=== PATIENT | male | born 1985 | race Caucasian/White ===

== ENCOUNTER 2019-04-23 01:25 | Inpatient (IN) | payer OTHER, SELFPAY ==
[~2019-04-23] VITALS: Ht 177.8 cm; Wt 73.3 kg
[2019-04-23] VITALS (47 sets, daily range): BP systolic 79–173; BP diastolic 45–103; O2SAT 100
[2019-04-23] MEDS ORDERED: MORPHINE 4 MG/ML 1ML VIAL/SYRINGE (J2270) IV PRN (03:30)
[2019-04-23 03:41] LABS: ABG BASE EXCESS -4.7 (-2.0-2.0); ABG O2 SATURATION 98.3 % (95.0-99.0); ABG PARTIAL PRESSURE CO2 36.6 mmHg (35.0-45.0); ABG PARTIAL PRESSURE O2 119.9 mmHg (75.0-100.0); ABG STANDARD HCO3 20.7 MEQ/L (22.0-26.0); ABG TOTAL CO2 21.1 MEQ/L (22.0-29.0); ABG pH (ARTERIAL) 7.355 UNITS (7.350-7.450)
[2019-04-23 03:50] LABS: BASO # 0.1 10^3/uL (0.0-0.2); BASO % 0.3 % (0.0-1.0); EOS % 0.1 % (0.0-3.0); HEMATOCRIT 53.6 % (42.0-52.0); HEMOGLOBIN 18.5 g/dl (13.5-17.5); LYMPH # 1.4 10^3/uL (1.5-4.5); LYMPH % 7.9 % (24.0-44.0); MEAN CORPUSCULAR HEMOGLOBIN 32.5 pg (27.0-33.0); MEAN CORPUSCULAR HGB CONC 34.5 g/dl (32.0-36.5); MONO # 1.7 10^3/uL (0.0-0.8); MONO % 9.5 % (0.0-5.0); NEUTROPHILS # 14.5 10^3/uL (1.8-7.7); NEUTROPHILS % 81.8 % (36.0-66.0); PLATELET COUNT, AUTOMATED 269 10^3/uL (150-450); WHITE BLOOD COUNT 17.8 10^3/uL (4.0-10.0)
[2019-04-23 03:58] LABS: OSMOLALITY SERUM 303 MOSM/KG (275-295)
[2019-04-23] MEDS ORDERED: GABA-843 PO (04:17)
[2019-04-23] MEDS ORDERED: BACL10TA2 PO (04:17)
[2019-04-23] MEDS ORDERED: PATIENT COMMENT (04:17)
[2019-04-23] MEDS ORDERED: ALL10TAB28 PO (04:17)
[2019-04-23] MEDS ORDERED: PROAAER10 INH (04:17)
[2019-04-23 04:20] LABS: ALBUMIN 3.5 GM/DL (3.2-5.2); ALT/SGPT 28 U/L (12-78); BILIRUBIN,TOTAL 0.6 MG/DL (0.2-1.0); BLOOD UREA NITROGEN 7 MG/DL (7-18); CALCIUM LEVEL 8.6 MG/DL (8.5-10.1); CARBON DIOXIDE LEVEL 22 MEQ/L (21-32); CHLORIDE LEVEL 115 MEQ/L (98-107); CHOLESTEROL LEVEL 150 MG/DL (< 200); CPK CREATINE PHOSPHOKINASE 131 U/L (39-308); CREATININE FOR GFR 1.11 MG/DL (0.70-1.30); GLOMERULAR FILTRATION RATE > 60.0 (>60); GLUCOSE, FASTING 114 MG/DL (70-100); LDH LACTATE DEHYDROGENASE 269 U/L (87-241); MAGNESIUM LEVEL 2.6 MG/DL (1.8-2.4); PHOSPHORUS LEVEL 3.4 MG/DL (2.5-4.9); POTASSIUM SERUM 5.5 MEQ/L (3.5-5.1); SODIUM LEVEL 143 MEQ/L (136-145); TOTAL PROTEIN 7.3 GM/DL (6.4-8.2); TRIGLYCERIDES LEVEL 306 MG/DL (<150)
[2019-04-23] MEDS ORDERED: NS 1,000 ML IV ONE ×3 (04:30→06:30)
[2019-04-23] MEDS ORDERED: MIDAZOLAM INJ 2 MG/2 ML VIAL (J2250) As Ordered ONE ×2 (04:31→04:36)
[2019-04-23] MEDS ORDERED: MIDAZOLAM INJ 2 MG/2 ML VIAL (J2250) IV STA ×3 (04:34→18:39)
[2019-04-23 05:16] LABS: ETHYL ALCOHOL (ETHANOL) < 0.003 % (0.000-0.010)
--- NOTE | 2019-04-23 05:55 | HPE ---
DATE OF ADMISSION: 04/23/2019 CRITICAL CARE TIME: 1 hour and 15 minutes. This excludes all procedures. HISTORY OF PRESENT ILLNESS: Mr. Patterson is a 34-year-old male who does not routinely see physicians who had been transferred from [facility] ([facility]) after presenting there with severe agitation and altered mental status. Apparently the only history I am able to obtain is this through his reported fiance Zackary Thomas. She states over the past couple of days they have been arguing and therefore she did not have much interaction with him. They do live in the same household. She states that this evening he approached her and kept repeating himself and not making sense with conversation. He was ", "twitchy and clammy." She felt that something was not right and therefore called the ambulance and reports at times he was not responding to her questions. He had a few episodes of vomiting. She states he vomited mostly bile. She states he was very agitated walking around and rocking back and forth and would not sit down even when the ambulance came. On arrival to the emergency room he was agitated. They gave him benzodiazepine therapy to obtain a noncontrast head CT which was reportedly completely normal and of good quality. The significant other reports no recent trauma. No recent sick contacts. She states he takes Tylenol on a regular basis for headaches. The only medical history is he had teeth pulled two weeks ago and had been taking antibiotics since that time. She believes he has been taking clindamycin 150 mg every 8 hours. He denies any diarrhea. The patient has gabapentin and baclofen for chronic back pain available to him. He is not known to use any intravenous (IV) drugs but does smoke pot on a daily basis but she states he has not smoked pot today. He has no history of other illicit drug use, no cocaine history. He does have a court date today. I am not sure the details of that but she asked for a letter. On my arrival to the room the patient does respond to pain. He is sedated on mechanical ventilation on a Versed drip. No obvious signs of trauma. I did attempt doing a lumbar puncture at bedside due to his elevated white blood cell count and history of altered mental status and agitation. I did not obtain any cerebrospinal fluid due to the fact that he was not conscious during the procedure. I did not want to continue with excessive attempts towards lumbar puncture. I think the possibility of meningitis is less likely as he has been on clindamycin. His fiance also tells me that he has avoided physicians. She believes he has had his childhood immunizations. PAST MEDICAL HISTORY: The only history obtainable as that: 1. He has an active cigarette smoker, marijuana use. 2. Chronic back pain, history of back injury. . 3. Recent tooth extraction. SOCIAL HISTORY: He lives with luana, no sick contacts. No other history is obtainable. FAMILY HISTORY: Not obtainable due to clinical state. REVIEW OF SYSTEMS: Not obtainable due to clinical state. PHYSICAL EXAMINATION: VITAL SIGNS: Temperature is 97.0, blood pressure is 95/60 with a manual arterial pressure of 72 ranging to 117/62, pulse ranging 47-59 and a sinus bradycardia, respiratory rate is 20, oxygen saturation is 100% on 0.40 FIO2. GENERAL: The patient is sedated on mechanical ventilation but does respond to pain, moves all extremities at times. HEENT: Sclerae clear. Pupils are small but reactive to light and equal. There is some conjunctival injection and irritation. Nasal mucosa is pink and moist. Oropharynx without erythema or exudate. There is a small laceration of his left upper lip which may have been present during intubation. Tongue is midline. NECK: Neck is supple. No tracheal deviation or mass, no thyromegaly. LYMPHS: No cervical, supraclavicular, axillary adenopathy. CARDIAC: Regular S1-S2 and bradycardia without murmur, rub or gallop. No elevated jugular venous pulse (JVP). No systemic edema. PULMONARY: Clear to auscultation, slightly decreased breath sounds on the right than the left. No rales, rhonchi or wheezes. No dullness to percussion. Fairly normal chest expansion. ABDOMEN: Soft, nontender, nondistended. No hepatosplenomegaly. No mass or hernia. EXTREMITIES: No cyanosis, clubbing or edema. SKIN: No rashes, jaundice or bruising. There are no track monroe. MUSCULOSKELETAL: Well-developed muscle tone without evidence of joint effusion. LABORATORY EVALUATION: White blood cell count of 17, hematocrit of 18.5. Sodium is 143, potassium is 5.5, chloride 115, bicarb is 22, BUN of 7, creatinine 1.11, glucose is 114, anion gap is 6, serum osm 303, calculated osmolar gap is 8, lactate is 1.6. IMAGING: Chest x-ray shows the endotracheal tube high approximately 7.5 cm above the isabel and this was advanced after this finding. There is rotation of the film. Otherwise the lung jernigan appear clear. No evidence of pneumothorax, mass or effusion. IMPRESSION: 1. Altered mental status of undetermined etiology, possibly drug induced. The patient has access to baclofen, gabapentin and recently had social stressors. Also the patient has an elevated white count significantly; so therefore meningitis remains in the differential however, the patient was already on clindamycin which would make this less likely but not impossible. Therefore I attempted a lumbar puncture at bedside which was unsuccessful and due to the fact that he is not conscious I did not continue to try as he would not be able to tell me if there is a significant discomfort.. I have covered with ceftriaxone and vancomycin. At this point in time his head CT was unremarkable. There does not have a prior history of seizure. He has a normal osmolar gap. My ultimate suspicion is this is toxic metabolic but infection should be taken seriously in the light of a leukocytosis. 2. Leukocytosis. As mentioned above being covered for meningitis. Meningitis coverage would cover any other potential source of infection. There is no other potential source of infection at this point in time. Blood cultures are being obtained. He does have a recent history of tooth extraction. I do not auscultate any murmurs. I see no Janeway lesions. I do not believe he has endocarditis although this remains on the differential. 3. Dehydration with hemoconcentration with history of vomiting. Intravenous fluids are initiated. He will likely need at least 3 liters. 4. Hyperkalemia likely induced due to dehydration. Will continue to monitor with morning labs. 5. Gastrointestinal prophylaxis with Protonix. 6. Deep venous thrombosis (DVT) prophylaxis with Lovenox. PLAN: Will continue to monitor and perform sedation vacation in the morning. If the patient does well and wakes up and follows commands a trial of extubation will be performed; if not, he may require further imaging with MRI. The patient remains critically ill due to the severity of his altered mental status requiring mechanical ventilation for protection of airway. Critical care time was 1 hour 15 minutes.
[2019-04-23] MEDS ORDERED: ACET-897 PO (05:58)
[2019-04-23] MEDS ORDERED: IBUP1TAB6 PO (05:58)
[2019-04-23] MEDS ORDERED: MIDAZOLAM HCL 100 MG in D5W 80 ML IV SCH ×2 (06:00→16:24)
--- NOTE | 2019-04-23 06:21 | RO ---
DATE OF SERVICE: 04/23/2019 INTENDED PROCEDURE: Lumbar puncture. INDICATION: Possible meningitis. POSTPROCEDURE DIAGNOSIS: Possible meningitis. DOCTOR: Dr. Griffith ANESTHESIA: The patient was sedated on mechanical ventilation. PROCEDURE: There was no one to provide informed consent, verbal consent was provided by his fiance who he lives with, however, is not the legal quality control representative it was deemed necessary and urgent that this be performed due to his clinical presentation. DESCRIPTION OF PROCEDURE: The area is prepped and draped in the usual sterile fashion with Betadine and sterile drape. Using landmarks a 22 gauge needle was attempted to be inserted into the L4-L5 interspace, this stylet was removed on multiple attempts and there was no return of any fluid. I therefore attempted the L3-L4 interspace, again no evidence of fluid returned. The procedure was stopped, there is no evidence of hemostasis. A Band-Aid was placed over the site. There is no evidence of hematoma.
[2019-04-23] MEDS ORDERED: VANCOMYCIN HCL 750 MG, VIAL MATE ADAPTER 1 EACH in D5W 250 ML IV ONE (07:00)
--- NOTE | 2019-04-23 07:03 | REP ---
Clinical: Dyspnea . Comparison: None . Findings: Endotracheal tube approximately 5 cm above the isabel. Evaluation is somewhat limited by positioning and rotation. The mediastinum and cardiac silhouette are within normal limits for portable technique. The lung jernigan are clear without acute consolidation, effusion, or pneumothorax. Skeletal structures are intact. Impression: No acute cardiopulmonary process appreciated. Electronically Signed by James De Los Santos MD 04/23/2019 06:54 A
[2019-04-23] MEDS: CHLORHEXIDINE GLUCONATE 0.12 % 15ML UDC (PERIDEX ORAL RINSE) MT SCH ×2 (07:38→20:32)
[2019-04-23] MEDS: ENOXAPARIN 40 MG/0.4 ML SYRINGE (J1650) SC SCH (07:38)
[2019-04-23] MEDS: PANTOPRAZOLE 40MG INJ (PROTONIX) (C9113) IV SCH (07:38)
[2019-04-23] MEDS: IPRATROPIUM 0.5MG/ALBUTEROL 2.5MG INH SOL UD 3ML (DUONEB)(J7620) NEB SCH ×4 (07:51→19:28)
--- NOTE | 2019-04-23 08:05 | PHACANCOPD ---
PHARMACY VANCOMYCIN DOSING Pt Demographics Demographics Patient Age:34 , Weight:74.700 , Gender: male Adjusted Body Weight Date: 04/23/19, Adjusted Body Weight: Kg Events Past 24 Hours Events Past 24 Hours: YES: Elevation in WBC, Pending Diagnostics Vancomycin Vancomycin indication: POSSIBLE MENINGITIS Vancomycin Target Ranges: 15-20 mcg/ml Vancomycin Load Y/N: Yes Load Dose Date Time Vancomycin Load Dose: 1750mg Date: 04/23/19 Time: 0700 Vancomycin Dose Date: 04/23/19. Current Vancomycin Dose: [1g IV Q8H] Intermittent Dosing?: No Labs Labs Item Value Date Time White Blood Count 17.8 10^3/uL H 04/23/19 0343 Creatinine 1.11 MG/DL 04/23/19 0343 Blood Urea Nitrogen 7 MG/DL 04/23/19 0343 Lactic Acid Level 1.6 MMOL/L 04/23/19 0343 Micro Microbiology 04/23/19 Blood Culture, Received Pending Creatinine Clearance Date:04/23/19. Creatinine Clearance: . Assessment and Plan Maintaining Current Dose?: Yes Reason for dose change: No Dose Change Pharmacist Note Pharmacist Note Date: 04/23/19. Pharmacist note: Day #1 empiric vancomycin therapy initiated with a 1750mg loading dose, followed by a maintenance regimen of 1g IV Q8H for the treatment of possible meningitis - aiming for a goal trough of 15-20mcg/ml. The patient was transferred from [facility] after presenting with AMS, and is currently intubated. WBC is elevated, pt is afebrile, procalcitonin is pending, and CXR revealed "No acute cardiopulmonary process appreciated." No PMH of MRSA or vanco use here at [facility]. A vancomycin trough level has been scheduled to be drawn tomorrow, 04/24/19, at 0800 - prior to the 4th dose. We will continue to monitor and make dose adjustments if needed. PIERRE REGAN [facility] Apr 23, 2019 08:05
[2019-04-23] MEDS ORDERED: MIDAZOLAM INJ 5 MG/ML VIAL (J2250) As Ordered ONE (08:18)
[2019-04-23 08:25] LABS: HEMATOCRIT 51.2 % (42.0-52.0); HEMOGLOBIN 17.8 g/dl (13.5-17.5); MEAN CORPUSCULAR HEMOGLOBIN 31.7 pg (27.0-33.0); MEAN CORPUSCULAR HGB CONC 34.8 g/dl (32.0-36.5); MEAN CORPUSCULAR VOLUME 91.3 fl (80.0-96.0); PLATELET COUNT, AUTOMATED 231 10^3/uL (150-450); RED BLOOD COUNT 5.61 10^6/uL (4.30-6.10); WHITE BLOOD COUNT 13.9 10^3/uL (4.0-10.0)
[2019-04-23] MEDS ORDERED: MIDAZOLAM INJ 5 MG/ML VIAL (J2250) IV STA (08:30)
[2019-04-23] MEDS: MIDAZOLAM HCL 100 MG in D5W 80 ML IV SCH ×2 (08:45→18:15)
[2019-04-23 08:57] LABS: BLOOD UREA NITROGEN 5 MG/DL (7-18); CALCIUM LEVEL 8.2 MG/DL (8.5-10.1); CARBON DIOXIDE LEVEL 22 MEQ/L (21-32); CHLORIDE LEVEL 118 MEQ/L (98-107); CREATININE FOR GFR 1.04 MG/DL (0.70-1.30); GLOMERULAR FILTRATION RATE > 60.0 (>60); GLUCOSE, FASTING 97 MG/DL (70-100); POTASSIUM SERUM 4.6 MEQ/L (3.5-5.1); SODIUM LEVEL 146 MEQ/L (136-145)
[2019-04-23] MEDS: VANCOMYCIN HCL 1,000 MG, VIAL MATE ADAPTER 1 EACH in D5W 250 ML IV SCH ×2 (09:05→18:07)
[2019-04-23] MEDS ORDERED: cefTRIAXone SOD 2 GM VIAL (J0696) IM SCH (10:00)
[2019-04-23] MEDS: cefTRIAXone SOD 2 GM in D5W MINI-BAG PLUS 50 ML IV SCH (10:30)
[2019-04-23] MEDS: MIDAZOLAM INJ 2 MG/2 ML VIAL (J2250) IV PRN ×9 (12:35→20:57)
[2019-04-23] MEDS ORDERED: PROPOFOL 1,000 MG in APPROPRIATE DILUENT 1 EA IV SCH (13:00)
[2019-04-23] MEDS ORDERED: NS 500 ML IV ONE ×2 (14:15→16:00)
[2019-04-23] MEDS ORDERED: MIDAZOLAM INJ 2 MG/2 ML VIAL (J2250) IV ONE (16:00)
[2019-04-23] MEDS ORDERED: MIDAZOLAM INJ 5 MG/ML VIAL (J2250) IV ONE (16:00)
--- NOTE | 2019-04-23 16:05 | REP ---
MRI brain without contrast: History: Altered mental status. Comparison study: No comparison study. Technique: Axial and sagittal imaging planes are utilized for T1 and T2-weighted scans. Sequences include spin-echo, fast spin echo, FLAIR, and diffusion weighted sequences. MRI findings: No bony calvarial lesion is seen. Craniocervical junction and upper cervical cord are normal in appearance. There is no MR evidence of significant paranasal sinus disease. No intraorbital abnormality is seen. The lateral, third, and fourth ventricles are normal in size and position. Saleem-white differentiation pattern is intact above and below the tentorium. There is no evidence of intracranial hemorrhage. No mass, infarction, extra-axial fluid collection or midline shift is seen. No abnormal white matter lesion is seen. Impression: Negative noncontrast brain MRI study. Electronically Signed by Stephon Harry MD 04/23/2019 04:03 P
[2019-04-23] MEDS ORDERED: PROPOFOL 1,000 MG/100 ML VIAL As Ordered ONE (20:31)
[2019-04-23] MEDS: PROPOFOL 1,000 MG in APPROPRIATE DILUENT 1 EA IV SCH (20:58)
[2019-04-24] VITALS (26 sets, daily range): BP systolic 95–125; BP diastolic 53–80; O2SAT 98–99
[2019-04-24] MEDS: VANCOMYCIN HCL 1,000 MG, VIAL MATE ADAPTER 1 EACH in D5W 250 ML IV SCH ×2 (00:45→09:54)
[2019-04-24] MEDS: PROPOFOL 1,000 MG in APPROPRIATE DILUENT 1 EA IV SCH ×7 (00:56→21:08)
[2019-04-24] MEDS: MIDAZOLAM INJ 2 MG/2 ML VIAL (J2250) IV PRN ×5 (06:22→16:29)
[2019-04-24 06:31] LABS: ABG BASE EXCESS -1.3 (-2.0-2.0); ABG O2 SATURATION 96.3 % (95.0-99.0); ABG PARTIAL PRESSURE CO2 29.7 mmHg (35.0-45.0); ABG PARTIAL PRESSURE O2 75.1 mmHg (75.0-100.0); ABG STANDARD HCO3 23.4 MEQ/L (22.0-26.0); ABG TOTAL CO2 21.9 MEQ/L (22.0-29.0); ABG pH (ARTERIAL) 7.468 UNITS (7.350-7.450)
[2019-04-24 08:12] LABS: BASO % 0.3 % (0.0-1.0); EOS % 0.3 % (0.0-3.0); HEMATOCRIT 42.7 % (42.0-52.0); HEMOGLOBIN 15.2 g/dl (13.5-17.5); LYMPH % 8.8 % (24.0-44.0); MEAN CORPUSCULAR HEMOGLOBIN 31.9 pg (27.0-33.0); MEAN CORPUSCULAR HGB CONC 35.6 g/dl (32.0-36.5); MEAN CORPUSCULAR VOLUME 89.7 fl (80.0-96.0); MONO % 8.8 % (0.0-5.0); NEUTROPHILS # 9.5 10^3/uL (1.8-7.7); NEUTROPHILS % 81.5 % (36.0-66.0); PLATELET COUNT, AUTOMATED 216 10^3/uL (150-450); RED BLOOD COUNT 4.76 10^6/uL (4.30-6.10); WHITE BLOOD COUNT 11.7 10^3/uL (4.0-10.0)
[2019-04-24] MEDS: IPRATROPIUM 0.5MG/ALBUTEROL 2.5MG INH SOL UD 3ML (DUONEB)(J7620) NEB SCH ×4 (08:13→19:35)
--- NOTE | 2019-04-24 08:36 | REP ---
Clinical: Respiratory failure. Comparison: 04/23/2019. Findings: Endotracheal tube approximately 4 cm above the isabel. Nasogastric tube courses below left hemidiaphragm. Mediastinum and cardiac silhouette are within normal limits. Lung jernigan are relatively stable/clear and without focal consolidation, obvious effusion, or pneumothorax. Skeletal structures are intact. Impression: Lines and tubes in satisfactory position. No obvious focal consolidation or effusion. Electronically Signed by James De Los Santos MD 04/24/2019 07:21 A
[2019-04-24 09:01] LABS: ALBUMIN 3.2 GM/DL (3.2-5.2); BLOOD UREA NITROGEN 5 MG/DL (7-18); CALCIUM LEVEL 8.6 MG/DL (8.5-10.1); CARBON DIOXIDE LEVEL 24 MEQ/L (21-32); CHLORIDE LEVEL 114 MEQ/L (98-107); CREATININE FOR GFR 1.05 MG/DL (0.70-1.30); GLOMERULAR FILTRATION RATE > 60.0 (>60); GLUCOSE, FASTING 88 MG/DL (70-100); PHOSPHORUS LEVEL 2.7 MG/DL (2.5-4.9); POTASSIUM SERUM 3.2 MEQ/L (3.5-5.1); SODIUM LEVEL 146 MEQ/L (136-145); VANCOMYCIN LEVEL TROUGH 16.1 UG/ML (10.0-20.0)
[2019-04-24 09:02] LABS: ALBUMIN 3.1 GM/DL (3.2-5.2); ALT/SGPT 18 U/L (12-78); BILIRUBIN,TOTAL 0.6 MG/DL (0.2-1.0); BLOOD UREA NITROGEN 4 MG/DL (7-18); CALCIUM LEVEL 8.7 MG/DL (8.5-10.1); CARBON DIOXIDE LEVEL 24 MEQ/L (21-32); CHLORIDE LEVEL 115 MEQ/L (98-107); CREATININE FOR GFR 1.07 MG/DL (0.70-1.30); GLOMERULAR FILTRATION RATE > 60.0 (>60); GLUCOSE, FASTING 89 MG/DL (70-100); POTASSIUM SERUM 3.1 MEQ/L (3.5-5.1); SODIUM LEVEL 146 MEQ/L (136-145); TOTAL PROTEIN 6.6 GM/DL (6.4-8.2)
[2019-04-24] MEDS ORDERED: POTASSIUM CHLORIDE INJ 20 MEQ in D5W/0.45% SODIUM CHLORIDE 1,000 ML IV SCH (09:15)
--- NOTE | 2019-04-24 09:30 | CCN ---
DATE OF SERVICE: 04/24/2019 Mr. Patterson is seen in the intensive care unit (ICU). He is currently sedated. Nursing notes that the patient has been doing well overnight without any significant issues while on the ventilator. He was initiated on propofol last evening after becoming agitated in spite of being on Versed. He has been afebrile. No other new issues noted by nursing. He is making urine, approximately 60 mL/h. Vital signs: Temperature 99.1, pulse 86, blood pressure 116/70, respiratory rate 23, oxygen (O2) saturation 98%. The patient is on a ventilator set at volume control with a tidal volume of 440, rate of 20, positive end-expiratory pressure (PEEP) of 5, FIO2 of 21. General: The patient is sedate. A spontaneous breathing trial is attempted, and sedation was turned off. The patient became agitated, was moving all extremities but not following commands. HEENT: Head is normocephalic, atraumatic. The patient has endotracheal tube in place. Moist mucous membranes. Pupils are dilated. Neck: Neck is supple. No cervical lymphadenopathy. Trachea is midline. No jugular venous distention (JVD). Chest: Clear to auscultation bilaterally. No wheezes, rales, rhonchi, or crackles. Heart: Regular rate and rhythm. S1, S2. No murmurs. Abdomen: Positive bowel sounds, soft, nontender. No rebound or guarding. No obvious hepatosplenomegaly. Extremities: No clubbing, cyanosis, or edema. Skin: Skin is warm and dry. Neurologic: The patient moves all extremities. He does not follow commands. LABORATORIES: WBC 11.7, hemoglobin 15.2, hematocrit 42.7, platelets 216. Blood gas: pH 7.468, PCO2 29.7, pO2 75.1. Chemistry is pending. Vancomycin level pending. Chest x-ray is without obvious infiltrates or nodules. Endotracheal tube is measured at about 5.5 cm above the isabel. A blood culture shows no growth after 24 hours times one. Additional blood culture pending. Procalcitonin 0.03. ASSESSMENT AND PLAN: 1. Toxic metabolic encephalopathy. The patient was given a spontaneous breathing trial, which he failed as he did not follow commands. He was moving all extremities. Pupils have remained dilated, likely signifying continued drug effect. The plan will be to keep the patient intubated again today and continue to monitor closely and will attempt another spontaneous breathing trial tomorrow. 2. Leukocytosis. The patient does have elevated white blood cell (WBC) of 11.7. However, this is trending down. He is being covered with ceftriaxone and vancomycin until meningitis can be completely ruled out. His procalcitonin level was 0.03. Because of the procalcitonin being so low, this does not appear to be an infection; and, therefore, it is felt that vancomycin and ceftriaxone can be discontinued. WBC continues to trend down, as well. This does not appear to be meningitis. 3. Respiratory failure secondary to toxic metabolic encephalopathy. 4. Nutrition. Will order feeds with Jevity. 5. Situational depression, according to family. The patient will require a psychiatric evaluation prior to discharge. 6. Gastrointestinal (GI) prophylaxis. The patient is on Protonix. 7. Deep venous thrombosis (DVT) prophylaxis. The patient is on Lovenox. CRITICAL CARE TIME: 50 minutes, excluding all procedures.
[2019-04-24] MEDS: MIDAZOLAM HCL 100 MG in D5W 80 ML IV SCH ×2 (09:50→11:57)
[2019-04-24] MEDS: ENOXAPARIN 40 MG/0.4 ML SYRINGE (J1650) SC SCH (09:53)
[2019-04-24] MEDS: PANTOPRAZOLE 40MG INJ (PROTONIX) (C9113) IV SCH (09:53)
[2019-04-24] MEDS: KCL 20MEQ IN D5/0.45NS 1000ML 1,000 ML IV SCH ×2 (09:55→20:13)
[2019-04-24] MEDS: cefTRIAXone SOD 2 GM in D5W MINI-BAG PLUS 50 ML IV SCH (09:55)
[2019-04-24] MEDS: CHLORHEXIDINE GLUCONATE 0.12 % 15ML UDC (PERIDEX ORAL RINSE) MT SCH ×2 (10:00→20:13)
[2019-04-24] MEDS ORDERED: POTASSIUM CHLORIDE 10% LIQ 20 MEQ/15 ML UDC FT ONE (10:00)
[2019-04-24] MEDS ORDERED: cefTRIAXone SOD 2 GM VIAL (J0696) IV SCH (10:00)
[2019-04-24 12:26] LABS: THYROID STIMULATING HORMONE 0.726 uIU/ML (0.358-3.740)
[2019-04-25] VITALS (18 sets, daily range): BP systolic 95–147; BP diastolic 50–98; O2SAT 95
[2019-04-25] MEDS: PROPOFOL 1,000 MG in APPROPRIATE DILUENT 1 EA IV SCH ×2 (00:58→04:35)
[2019-04-25 04:20] LABS: BASO % 0.2 % (0.0-1.0); EOS # 0.2 10^3/uL (0.0-0.50); EOS % 2.1 % (0.0-3.0); HEMATOCRIT 41.9 % (42.0-52.0); HEMOGLOBIN 14.9 g/dl (13.5-17.5); LYMPH # 1.4 10^3/uL (1.5-4.5); LYMPH % 16.7 % (24.0-44.0); MEAN CORPUSCULAR HEMOGLOBIN 32.7 pg (27.0-33.0); MEAN CORPUSCULAR HGB CONC 35.6 g/dl (32.0-36.5); MEAN CORPUSCULAR VOLUME 92.1 fl (80.0-96.0); MONO # 0.8 10^3/uL (0.0-0.8); MONO % 10.2 % (0.0-5.0); NEUTROPHILS # 5.7 10^3/uL (1.8-7.7); NEUTROPHILS % 70.7 % (36.0-66.0); PLATELET COUNT, AUTOMATED 186 10^3/uL (150-450); RED BLOOD COUNT 4.55 10^6/uL (4.30-6.10); WHITE BLOOD COUNT 8.1 10^3/uL (4.0-10.0)
[2019-04-25 04:50] LABS: ALT/SGPT 18 U/L (12-78); BILIRUBIN,TOTAL 0.4 MG/DL (0.2-1.0); BLOOD UREA NITROGEN 3 MG/DL (7-18); CALCIUM LEVEL 8.2 MG/DL (8.5-10.1); CARBON DIOXIDE LEVEL 26 MEQ/L (21-32); CHLORIDE LEVEL 113 MEQ/L (98-107); CREATININE FOR GFR 0.96 MG/DL (0.70-1.30); GLOMERULAR FILTRATION RATE > 60.0 (>60); GLUCOSE, FASTING 103 MG/DL (70-100); PHOSPHORUS LEVEL 4.1 MG/DL (2.5-4.9); POTASSIUM SERUM 3.1 MEQ/L (3.5-5.1); SODIUM LEVEL 145 MEQ/L (136-145); TOTAL PROTEIN 6.3 GM/DL (6.4-8.2)
[2019-04-25 05:51] LABS: ABG BASE EXCESS 0.5 (-2.0-2.0); ABG HCO3 23.1 MEQ/L (22.0-26.0); ABG O2 SATURATION 96.4 % (95.0-99.0); ABG PARTIAL PRESSURE CO2 31.8 mmHg (35.0-45.0); ABG PARTIAL PRESSURE O2 82.4 mmHg (75.0-100.0); ABG STANDARD HCO3 24.9 MEQ/L (22.0-26.0); ABG TOTAL CO2 24.1 MEQ/L (22.0-29.0); ABG pH (ARTERIAL) 7.479 UNITS (7.350-7.450)
--- NOTE | 2019-04-25 07:37 | REP ---
The portable chest, 07:02 a.m., single AP view with the patient semi upright: Comparison is 04/24/2019. There is increased density in the left costophrenic angle as an interval change, possibly developing infiltrate. The the. Lung jernigan otherwise clear and unchanged. Cardiac size is normal. The derek, mediastinum, skeletal structures are unremarkable. Endotracheal tube tip remains in satisfactory position above the level of the aortic arch. The NG tube tip is in satisfactory position in the abdominal left upper quadrant. The precise location of the distal tip is excluded at the inferior film margin. Impression: New zone of increased density in the left costophrenic angle. Electronically Signed by Ashutosh Bishop MD 04/25/2019 07:30 A
[2019-04-25] MEDS: IPRATROPIUM 0.5MG/ALBUTEROL 2.5MG INH SOL UD 3ML (DUONEB)(J7620) NEB SCH ×4 (07:44→19:47)
[2019-04-25] MEDS: KCL 20MEQ IN D5/0.45NS 1000ML 1,000 ML IV SCH (08:19)
[2019-04-25] MEDS: CHLORHEXIDINE GLUCONATE 0.12 % 15ML UDC (PERIDEX ORAL RINSE) MT SCH (08:19)
[2019-04-25] MEDS: ENOXAPARIN 40 MG/0.4 ML SYRINGE (J1650) SC SCH (08:19)
[2019-04-25] MEDS: PANTOPRAZOLE 40MG INJ (PROTONIX) (C9113) IV SCH (08:19)
--- NOTE | 2019-04-25 09:20 | CCN ---
DATE OF SERVICE: 04/25/2019 CRITICAL CARE NOTE: Mr. Patterson is seen in the intensive care unit (ICU). He is intubated on a ventilator. He has had no significant issues overnight according to the nurses. He has been afebrile, has been making urine with an output of 550 in 2 hours. VITAL SIGNS: Temperature 97.2, pulse 94, respiratory rate 22, blood pressure is 121/75, pulse oximetry 95% on ventilator, pressure control 8/5 with a rate of 14. GENERAL: The patient is sedate. HEENT: Head is normocephalic, atraumatic. The patient has an endotracheal tube in place. Moist mucous membranes. Pupils are dilated but reactive to light. NECK: Neck is supple. No cervical lymphadenopathy. No jugular venous distention (JVD). Trachea is midline. CHEST: Clear to auscultation bilaterally. No wheezes, rales, rhonchi, or crackles. HEART: Heart regular rate and rhythm. S1, S2. No murmurs. ABDOMEN: Positive bowel sounds, soft, nontender. No rebound or guarding. No obvious splenomegaly. EXTREMITIES: No clubbing, cyanosis, or edema. SKIN: Skin is warm and dry. NEUROLOGIC: The patient does move all extremities. LABS: ABG pH 7.479, pCO2 31.8, pO2 82.4. WBC 8.1, hemoglobin 14.9, hematocrit 41.9, platelets 186. Sodium 145, potassium 3.1, chloride 113, carbon dioxide 26, BUN 3, creatinine 0.96, glucose 103, calcium 8.2, phosphorus 4.1, total bilirubin 0.4, AST 12, ALT 18, alkaline phosphatase 79, total protein 6.30, albumin 3.0. Chest x-ray without any obvious infiltrates or nodules. Blood culture shows no growth after 24 hours and no growth after 48 hours. ASSESSMENT/PLAN: 1. Toxic metabolic encephalopathy. He was extubated. He will be monitored closely. He is still waking up. His pupils have remained dilated, which likely signifies continued drug effect. Will monitor closely. Tube feeds have been stopped. Propofol drip has been stopped. The patient will likely need a psychiatric evaluation given his suspicion of taking something, which was believed to be baclofen, although it is unclear if he had taken anything else additionally. 2. Hypokalemia. The patient has been getting and gentle IV hydration with potassium chloride. He did get some additional potassium chloride yesterday. We will order potassium (K) runs today. Continue to monitor.
[2019-04-25] MEDS: KCL 10MEQ/100ML SWI (KRUN) 10 MEQ in APPROPRIATE DILUENT 1 EA IV SCH ×2 (09:23→10:28)
--- NOTE | 2019-04-25 13:47 | IPNPDOC ---
Subjective Date Seen The patient was seen on 04/25/19. Subjective Chief Complaint/HPI Patient is sitting up in bed. Offers no new complaints. Family is at bedside. Denies suicidal or homicidal ideations General: Denies: ROS Unobtainable, Chills, Night Sweats, Fatigue, Malaise, Normal Appetite, Other Symptoms Constitutional: Denies: Chills, Fever, Malaise, Night Sweats, Weakness, Fatig ue, Weight Loss, Lethargy, Other Eyes: Denies: Pain, Vision change, Conjunctivae inflammation, Eyelid inflammation, Redness, Other ENT: Denies: Head Aches, Ear Pain, Dysphagia, Sinus Congestion, Post Nasal Drip, Sore Throat, Epistaxis, Other Symptoms Skin: Denies: Rash, Lesions, Jaundice, Bruising, Itching, Dry, Breakdown, Nail Changes, Other Pulmonary: Denies: Dyspnea, Cough, Pleuritic Chest Pain, Other Symptoms Cardiovascular: Denies: Chest Pain, Palpitations, Orthopnea, Paroxysmal Noc. Dyspnea, Edema, Lt Headedness, Other Symptoms Gastrointestinal: Denies: Nausea, Vomiting, Abdominal Pain, Diarrhea, Constipation, Melena, Hematochezia, Other Symptoms Musculoskeletal: Denies: Neck Pain, Back Pain, Shoulder Pain, Arm Pain, Hand Pain, Leg Pain, Foot Pain, Joint Pain, Muscle Pain, Spasms, Other Symptoms Neurological: Denies: Weakness, Numbness, Incoordination, Change in speech, Confusion, Seizures, Other Symptoms Psych: Denies: Mood Normal, Anxiety, Depression, Memory Issues, Thoughts of S elf Harm, Anger, Thoughts of Harming Other, Other Psych Objective Physical Examination General Exam: Positive: Alert Eye Exam: Positive: PERRLA, Conjunctiva & lids normal ENT Exam: Positive: Atraumatic, Mucous membr. moist/pink Neck Exam: Positive: Supple, JVD Chest Exam: Positive: Clear to auscultation Heart Exam: Positive: Rate Normal, Normal S1, Normal S2 Abdomen Exam: Positive: Soft Skin Exam: Positive: Nl turgor and temperature Neuro Exam: Positive: Normal Speech Psych Exam: Positive: Mental status NL, Mood NL, Oriented x 3 Assessment /Plan Problems (1) Altered mental status Problem Text: Altered mental status secondary to acute encephalopathy secondary to possible baclofen overdose Patient had been explained it today NG tube has been removed He is tolerating clear liquid diet Jeff and her family at the bedside Discussed with Dr campbell, she will see patient for a psychiatric consultation Continue one-to-one watch in the meantime Continue present care Can be transferred to medical floor Plan/VTE VTE Prophylaxis Ordered?: Yes VS, I&O, 24H, Fishbone Vital Signs/I&O Vital Signs Date Time Temp Pulse Resp B/P (MAP) Pulse Ox O2 Delivery O2 Flow Rate FiO2 04/25/19 12:00 97.5 117 16 147/98 (114) 100 04/25/19 08:30 21 04/25/19 07:44 Ventilator 04/23/19 22:00 I&O- Last 24 Hours up to 6 AM 04/25/19 06:00 Intake Total 2949.4 ml Output Total 2080 ml Balance 869.4 ml Laboratory Data 24H LABS Laboratory Tests 2 04/25/19 03:59: Immature Granulocyte % (Auto) 0.1, White Blood Count 8.1, Red Blood Count 4.55, Hemoglobin 14.9, Hematocrit 41.9L, Mean Corpuscular Volume 92.1, Mean Corpuscular Hemoglobin 32.7, Mean Corpuscular Hemoglobin Concent 35.6, Red Cell Distribution Width 13.2, Platelet Count 186, Neutrophils (%) (Auto) 70.7H, Lymphocytes (%) (Auto) 16.7L, Monocytes (%) (Auto) 10.2H, Eosinophils (%) (Auto) 2.1, Basophils (%) (Auto) 0.2, Neutrophils # (Auto) 5.7, Lymphocytes # (Auto) 1.4L, Monocytes # (Auto) 0.8, Eosinophils # (Auto) 0.2, Basophils # (Auto) 0.0, Nucleated Red Blood Cells % (auto) 0.0, Anion Gap 6L, Glomerular Filtration Rate > 60.0, Blood Urea Nitrogen 3L, Creatinine 0.96, Sodium Level 145, Potassium Level 3.1L, Chloride Level 113H, Carbon Dioxide Level 26, Calcium Level 8.2L, Phosphorus Level 4.1#, Aspartate Amino Transf (AST/SGOT) 12, Alanine Aminotransferase (ALT/SGPT) 18, Alkaline Phosphatase 79, Total Bilirubin 0.4, Total Protein 6.3L, Albumin 3.0L, Albumin/Globulin Ratio 0.91L 04/25/19 05:41: Blood Gas Bicarbonate Standard 24.9, Arterial Blood pH 7.479H, Arterial Blood Partial Pressure CO2 31.8L, Arterial Blood Partial Pressure O2 82.4, Arterial Blood Total CO2 24.1, Arterial Blood HCO3 23.1, Arterial Blood Base Excess 0.5, Arterial Blood Oxygen Saturation 96.4 CBC/BMP Laboratory Tests 04/25/19 03:59 Red Blood Count 4.55, Mean Corpuscular Volume 92.1, Mean Corpuscular Hemoglobin 32.7, Mean Corpuscular Hemoglobin Concent 35.6, Red Cell Distribution Width 13.2, Neutrophils (%) (Auto) 70.7 H, Lymphocytes (%) (Auto) 16.7 L, Monocytes (%) (Auto) 10.2 H, Eosinophils (%) (Auto) 2.1, Basophils (%) (Auto) 0.2, Neutrophils # (Auto) 5.7, Lymphocytes # (Auto) 1.4 L, Monocytes # (Auto) 0.8, Eosinophils # (Auto) 0.2, Basophils # (Auto) 0.0, Calcium Level 8.2 L, Phosphorus Level 4.1 #, Aspartate Amino Transf (AST/SGOT) 12, Alanine Aminotransferase (ALT/SGPT) 18, Alkaline Phosphatase 79, Total Bilirubin 0.4, Total Protein 6.3 L, Albumin 3.0 L Microbiology Microbiology 04/23/19 Blood Culture - Preliminary, Resulted No Growth after 48 hours. All Specime... 04/23/19 Blood Culture - Preliminary, Resulted No Growth after 48 hours. All Specime... TRISTAN VINSON MD Apr 25, 2019 13:47
--- NOTE | 2019-04-25 14:55 | MHCRPDOC ---
[facility] Consultation Consultation DATE OF CONSULTATION: 04/25/19 CONSULTATION REQUESTED BY: Dr. Baum REASON FOR CONSULTATION: Overdose, possible suicide attempt. RELEVANT HISTORY: Patient is a 34-year-old male who presented to the [place] emergency room on 04/23/2019 with altered mental status. Patient was transferred to [facility] and was intubated. Prior to coming in the hospital, patient was fighting with his fiance. At first, it was unclear what the patient took or what was going on to cause his altered mental status. Patient was initially covered with antibiotics for possible meningitis due to a leukocytosis. Over the following days, the etiology of the patient's altered mental status appeared to be more toxic than infectious. Patient was bradycardic at one point and it was thought that the patient may have overdosed on baclofen. Once this was determined, the patient's fianc went home and found a bottle of baclofen that the patient was prescribed in late February. It was initially prescribed for 90 tablets. Patient's fianc says that the patient had not been taking much of this as it did not really help his back pain. When the patient's fianc went home she found 31 tablets left out of this 90 tablets prescription. In talking with the patient, he denies trying to hurt himself at that time. Patient says he had gotten into an argument with his fiance but would not elaborate about what the argument was about. Patient says he only took 2 baclofen tablets prior to coming into the hospital. Patient denies drinking any alcohol at that time. Currently, the patient denies having any suicidal ideations or homicidal ideations. According to nursing staff, the patient has become more coherent in the last few hours. He was more agitated this morning but has calmed down since. PAST PSYCHIATRIC HISTORY: Denies PAST MEDICAL HISTORY: Chronic lower back pain, recent dental extraction FAMILY HISTORY: Denies any psychiatric illnesses that he is aware of in his family. Denies any suicide attempts or completions in family members. PERSONAL AND SOCIAL HISTORY: The patient was born and raised in [place]. Patient went to high school and [place] and graduated. Patient did not attend college. Patient says his childhood was "top-notch" Resides in: [place] Marital Status: Single Children: None Employment: Worked for the "[email or web address]" in [place] as well as the [employer] area he is currently unemployed SUBSTANCE ABUSE HISTORY: Smoking: Patient smokes cigarettes daily ETOH: Denies Illicit Drugs: Patient denies at this time however, according to history obtained from luana by Dr. Griffith in her initial history and physical exam, the patient does use marijuana daily LEGAL HISTORY: Denies MENTAL STATUS EXAMINATION: Patient is a 34-year old male, who is laying in hospital bed in the intensive care unit with family in the room. Family was asked to leave in order to conduct the patient interview. Speech is slow. Language skills are average. Thought processes including: Denies suicidal ideations, homicidal ideations. Thought content: Normal. Abstract reasoning, and computation: Linear. Description of associations: None. Description of abnormal or psychotic thoughts: Denies auditory, visual hallucinations. Denies paranoia. Judgment: Fair. Insight: Fair. Orientation to person and place. When asked the month patient did say April however quickly corrected himself to March. Recent and remote memory: Does not clearly remember the events that led up to his hospitalization. Attention span and concentration: Able to concentrate on the current interview however, his speech was very slow. Language: Average. Fund of knowledge: Average. Mood: Tired appearing. Affect: Slightly blunted. DIAGNOSIS: 1. Altered mental status most likely secondary to baclofen overdose. PLAN: At this time, it appears the patient still needs observation on the medical floor as he is still experiencing lingering effects of accidental overdose. I hope as the patient becomes more alert and cooperative he will begin to remember more the events that led up to his hospitalization. At this current time, patient denies any suicidality. Patient denies trying to hurt himself at the time of ingestion although, the patient does say he only took 2 baclofen instead of what his fiance and nursing staff report as close to 60 pills. At this time I believe we need to continue to monitor the patient on the medical floor and we can see the patient again tomorrow as the lingering effects of the baclofen overdose continue to wear off. Vital Signs Vital Signs Date Time Temp Pulse Resp B/P (MAP) Pulse Ox O2 Delivery O2 Flow Rate FiO2 04/25/19 12:00 97.5 117 16 147/98 (114) 100 04/25/19 08:30 21 04/25/19 07:44 Ventilator 04/23/19 22:00 Laboratory Data 24H Labs Laboratory Tests 2 04/25/19 03:59: Immature Granulocyte % (Auto) 0.1, White Blood Count 8.1, Red Blood Count 4.55, Hemoglobin 14.9, Hematocrit 41.9L, Mean Corpuscular Volume 92.1, Mean Corpuscular Hemoglobin 32.7, Mean Corpuscular Hemoglobin Concent 35.6, Red Cell Distribution Width 13.2, Platelet Count 186, Neutrophils (%) (Auto) 70.7H, Lymphocytes (%) (Auto) 16.7L, Monocytes (%) (Auto) 10.2H, Eosinophils (%) (Auto) 2.1, Basophils (%) (Auto) 0.2, Neutrophils # (Auto) 5.7, Lymphocytes # (Auto) 1.4L, Monocytes # (Auto) 0.8, Eosinophils # (Auto) 0.2, Basophils # (Auto) 0.0, Nucleated Red Blood Cells % (auto) 0.0, Anion Gap 6L, Glomerular Filtration Rate > 60.0, Blood Urea Nitrogen 3L, Creatinine 0.96, Sodium Level 145, Potassium Level 3.1L, Chloride Level 113H, Carbon Dioxide Level 26, Calcium Level 8.2L, Phosphorus Level 4.1#, Aspartate Amino Transf (AST/SGOT) 12, Alanine Aminotransferase (ALT/SGPT) 18, Alkaline Phosphatase 79, Total Bilirubin 0.4, Total Protein 6.3L, Albumin 3.0L, Albumin/Globulin Ratio 0.91L 04/25/19 05:41: Blood Gas Bicarbonate Standard 24.9, Arterial Blood pH 7.479H, Arterial Blood Partial Pressure CO2 31.8L, Arterial Blood Partial Pressure O2 82.4, Arterial Blood Total CO2 24.1, Arterial Blood HCO3 23.1, Arterial Blood Base Excess 0.5, Arterial Blood Oxygen Saturation 96.4 Home Medications Current Medications Current Medications Albuterol/ Ipratropium (Duoneb (Ipr 0.5mg/Alb 2.5mg)) 3 ml RQID NEB Last administered on 04/25/19at 13:22; Start 04/23/19 at 08:00 Ceftriaxone Sodium 2 gm/ Dextrose 50 ml @ 50 mls/hr Q24H IV Last administered on 04/24/19at 09:55; Start 04/23/19 at 10:00; Stop 04/24/19 at 10:49; Status DC Ceftriaxone Sodium (Rocephin) 2 gm Q24H IM ; Start 04/23/19 at 10:00; Stop 04/23/19 at 10:20; Status DC Ceftriaxone Sodium (Rocephin) 2 gm Q24H IV ; Start 04/24/19 at 10:00; Stop at 10:00; Status DC Chlorhexidine Gluconate (Peridex Oral Rinse) SWAB/BRUSH ORAL CAVITY BID MT Last administered on 04/25/19at 08:19; Start 04/23/19 at 09:00; Stop 04/25/19 at 08:54; Status DC Enoxaparin Sodium (Lovenox) 40 mg DAILY SC Last administered on 04/25/19at 08:19; Start 04/23/19 at 09:00 Home Med (Med Rec Complete!) ASDIRECTED XX ; Start 04/23/19 at 06:15; Stop 04/23/19 at 06:27; Status DC Midazolam HCl (Versed) 2 mg Q15MP PRN IV AGITATION Last administered on 04/24/19at 16:29; Start 04/23/19 at 13:00; Stop 04/25/19 at 09:49; Status DC Midazolam HCl (Versed) 2 mg STAT STAT IV Last administered on 04/23/19at 04:34; Start 04/23/19 at 04:34; Stop 04/23/19 at 06:22; Status DC Midazolam HCl (Versed) 2 mg STAT STAT IV Last administered on 04/23/19at 04:38; Start 04/23/19 at 04:38; Stop 04/23/19 at 06:22; Status DC Midazolam HCl (Versed) 4 mg STAT STAT IV Last administered on 04/23/19at 18:13; Start 04/23/19 at 18:39; Stop 04/23/19 at 18:45; Status DC Midazolam HCl (Versed) 5 mg STAT STAT IV Last administered on 04/23/19at 08:47; Start 04/23/19 at 08:30; Stop 04/23/19 at 08:31; Status DC Midazolam HCl 100 mg/Dextrose 100 ml @ 2 mls/hr Q24H IV ; Start 04/23/19 at 06:00; Stop 04/23/19 at 11:46; Status DC Midazolam HCl 100 mg/Dextrose 100 ml @ 2 mls/hr Q24H IV Last administered on 04/24/19at 11:57; Start 04/23/19 at 09:00; Stop 04/25/19 at 09:28; Status DC Midazolam HCl 100 mg/Dextrose 100 ml @ 6 mls/hr [id number] IV ; Start 04/23/19 at 16:24; Status UNV Morphine Sulfate (Morphine Sulfate Inj) 2 mg Q2HP PRN IV PAIN; Start 04/23/19 at 03:30; Stop 04/25/19 at 09:49; Status DC Pantoprazole Sodium (Protonix) 40 mg DAILY IV Last administered on 04/25/19at 08:19; Start 04/23/19 at 09:00 Potassium Chloride 10 meq/ IV Miscellaneous Supplies 100 ml @ 100 mls/hr Q1H IV Last administered on 04/25/19at 10:28; Start 04/25/19 at 09:00; Stop 04/25/19 at 10:59; Status DC Potassium Chloride 20 meq/ Dextrose/Sodium Chloride 1,010 ml @ 75 mls/hr [id number] IV ; Start 04/24/19 at 09:15; Stop 04/24/19 at 09:30; Status DC Potassium Chloride/Dextrose/ Sod Cl 1,000 ml @ 75 mls/hr [id number] IV Last administered on 04/25/19at 08:19; Start 04/24/19 at 10:00; Stop 04/25/19 at 14:17; Status DC Propofol 1000 mg/ IV Miscellaneous Supplies 100 ml @ 4.48 mls/hr [id number] IV ; Start 04/23/19 at 13:00; Stop 04/23/19 at 13:08; Status DC Propofol 1000 mg/ IV Miscellaneous Supplies 100 ml @ 4.48 mls/hr [id number] IV Last administered on 04/25/19at 04:35; Start 04/23/19 at 20:45; Stop 04/25/19 at 08:54; Status DC Vancomycin HCl 1000 mg/IV Miscellaneous Supplies 1 each/ Dextrose 270 ml @ 270 mls/hr Q8H IV Last administered on 04/24/19at 09:54; Start 04/23/19 at 09:00; Stop 04/24/19 at 10:49; Status DC Scheduled Baclofen (Baclofen) 10 Mg Tablet, 10 MG PO TID, (Reported) Cetirizine HCl (Cetirizine HCl) 10 Mg Tablet, 10 MG PO DAILY, (Reported) Gabapentin (Gabapentin) 300 Mg Capsule, 300 MG PO TID, (Reported) Scheduled PRN Acetaminophen (Tylenol Extra Strength) 500 Mg Tablet, 1,000 MG PO Q4H PRN for PAIN, (Reported) Albuterol Sulfate (Proair Hfa) 8.5 Gm Hfa.aer.ad, 2 PUFF INH Q4H PRN for SOB/WHEEZING, (Reported) Ibuprofen (Ibuprofen) 600 Mg Tablet, 600 MG PO Q6H PRN for PAIN, (Reported) Miscellaneous Medications [Patient Comment] , (Reported) MED LIST FROM EXTERNAL HISTORY AND CONVERSTAION WITH FAMILY MEMBER. PT INTUBATED AND UNABLE TO ANSWER. Allergies Coded Allergies: bee venom protein (honey bee) (Verified Allergy, Unknown, 04/23/19) GME ATTESTATION GME ATTESTATION My faculty preceptor for this patient encounter was physically present during the encounter and was fully available. All aspects of the patient interview, examination, medical decision making process, and medical care plan development were reviewed and approved by the faculty preceptor. The faculty preceptor is aware and concurs with the plan as stated in the body of this note and will attest to such by his/her cosignature. ZOILA AMAYA DO Apr 25, 2019 14:55
--- NOTE | 2019-04-25 19:15 | MHIPNPDOC ---
[facility] Progress Note Progress Note DATE OF SERVICE: 04/25/19 HISTORY: As per previous evaluation by Dr. Toth: " Patient is a 34-year-old male who presented to the [place] emergency room on 04/23/2019 with altered mental status. Patient was transferred to [facility] and was intubated. Prior to coming in the hospital, patient was fighting with his fiance. At first, it was unclear what the patient took or what was going on to cause his altered mental status. Patient was initially covered with antibiotics for possible meningitis due to a leukocytosis. Over the following days, the etiology of the patient's altered mental status appeared to be more toxic than infectious. Patient was bradycardic at one point and it was thought that the pat ient may have overdosed on baclofen. Once this was determined, the patient's fianc went home and found a bottle of baclofen that the patient was prescribed in late February. It was initially prescribed for 90 tablets. Patient's fianc says that the patient had not been taking much of this as it did not really help his back pain. When the patient's fianc went home she found 31 tablets left out of this 90 tablets prescription. In talking with the patient, he denies trying to hurt himself at that time. Patient says he had gotten into an argument with his fiance but would not elaborate about what the argument was about. Patient says he only took 2 baclofen tablets prior to coming into the hospital. Patient denies drinking any alcohol at that time. Currently, the patient denies having any suicidal ideations or homicidal ideations. According to nursing staff, the patient has become more coherent in the last few hours. He was more agitated this morning but has calmed down since." VITAL SIGNS: See below. NEW TEST RESULTS: See below CURRENT MEDICATIONS: See below. MENTAL STATUS EXAMINATION: Patient is a 34-year old male, who is alert, cooperative, dressed in hospital gown, seating on his bed at the ICU. Speech: Is slow, spontaneous, fluent, normal tone and rhythm. Language skills are good except for the fact that he speaks slowly probably because he is sedated. Thought processes including: linear, coherent. Thought content: goal orientated, he adamantly denies SI, denies HI, denies AV hallucinations, denies thought delusions . Description of abnormal or psychotic thoughts: Not suicidal, not homicidal, not psychotic. Judgment: fair. Insight: fair. Orientation: x 2 (not oriented to date and time because he is at the hospital, hes been sedated and there's no clocks/calendars around) Recent and remote memory: fair. Attention span and concentration: good. Language: full. Fund of knowledge: average. Mood: anxious. Affect: congruent with mood, anxious. DIAGNOSES: 1. R/O Generalized Anxiety disorder 2. Recent accidental overdose with baclofen ASSESSMENT: The patient has no previous suicidal ih/o, he adamantly denies SI/HI, he denies psychosis and his fiancee being present in the room says that she doesn't think that he would have done this intentionally. She says they have been arguing and shortly after he took 2 baclofen tabs. and she says that he has been receiving antibiotics because he has had a tooth infection and has had pain and she thinks he took the medications because he had not been relieved from previous medications. Both of them say he smokes marijuana, no other drugs/liquors. MANAGEMENT PLAN: He probably will need to be transferred to [address] [place] [address] because he is still a little bit slow/sedated. He doesn't need to come to [facility]. Not suicical, not homicidal and not psychotic. Contracts for safety. TIME SPENT: 25 minutes. Vital Signs Vital Signs Date Time Temp Pulse Resp B/P (MAP) Pulse Ox O2 Delivery O2 Flow Rate FiO2 04/25/19 12:00 97.5 117 16 147/98 (114) 100 04/25/19 08:30 21 04/25/19 07:44 Ventilator 04/23/19 22:00 Laboratory Data 24H Labs Laboratory Tests 2 04/25/19 03:59: Immature Granulocyte % (Auto) 0.1, White Blood Count 8.1, Red Blood Count 4.55, Hemoglobin 14.9, Hematocrit 41.9L, Mean Corpuscular Volume 92.1, Mean Corpuscular Hemoglobin 32.7, Mean Corpuscular Hemoglobin Concent 35.6, Red Cell Distribution Width 13.2, Platelet Count 186, Neutrophils (%) (Auto) 70.7H, Lymphocytes (%) (Auto) 16.7L, Monocytes (%) (Auto) 10.2H, Eosinophils (%) (Auto) 2.1, Basophils (%) (Auto) 0.2, Neutrophils # (Auto) 5.7, Lymphocytes # (Auto) 1.4L, Monocytes # (Auto) 0.8, Eosinophils # (Auto) 0.2, Basophils # (Auto) 0.0, Nucleated Red Blood Cells % (auto) 0.0, Anion Gap 6L, Glomerular Filtration Rate > 60.0, Blood Urea Nitrogen 3L, Creatinine 0.96, Sodium Level 145, Potassium Level 3.1L, Chloride Level 113H, Carbon Dioxide Level 26, Calcium Level 8.2L, Phosphorus Level 4.1#, Aspartate Amino Transf (AST/SGOT) 12, Alanine Aminotransferase (ALT/SGPT) 18, Alkaline Phosphatase 79, Total Bilirubin 0.4, Total Protein 6.3L, Albumin 3.0L, Albumin/Globulin Ratio 0.91L 04/25/19 05:41: Blood Gas Bicarbonate Standard 24.9, Arterial Blood pH 7.479H, Arterial Blood Partial Pressure CO2 31.8L, Arterial Blood Partial Pressure O2 82.4, Arterial Bl ood Total CO2 24.1, Arterial Blood HCO3 23.1, Arterial Blood Base Excess 0.5, Arterial Blood Oxygen Saturation 96.4 CBC/BMP Laboratory Tests 04/25/19 03:59 Red Blood Count 4.55, Mean Corpuscular Volume 92.1, Mean Corpuscular Hemoglobin 32.7, Mean Corpuscular Hemoglobin Concent 35.6, Red Cell Distribution Width 13.2, Neutrophils (%) (Auto) 70.7 H, Lymphocytes (%) (Auto) 16.7 L, Monocytes (%) (Auto) 10.2 H, Eosinophils (%) (Auto) 2.1, Basophils (%) (Auto) 0.2, Neutrophils # (Auto) 5.7, Lymphocytes # (Auto) 1.4 L, Monocytes # (Auto) 0.8, Eosinophils # (Auto) 0.2, Basophils # (Auto) 0.0, Calcium Level 8.2 L, Phosphorus Level 4.1 #, Aspartate Amino Transf (AST/SGOT) 12, Alanine Aminotransferase (ALT/SGPT) 18, Alkaline Phosphatase 79, Total Bilirubin 0.4, Total Protein 6.3 L, Albumin 3.0 L Current Medications Current Medications Albuterol/ Ipratropium (Duoneb (Ipr 0.5mg/Alb 2.5mg)) 3 ml RQID NEB Last administered on 04/25/19at 13:22; Start 04/23/19 at 08:00 Ceftriaxone Sodium 2 gm/ Dextrose 50 ml @ 50 mls/hr Q24H IV Last administered on 04/24/19at 09:55; Start 04/23/19 at 10:00; Stop 04/24/19 at 10:49; Status DC Ceftriaxone Sodium (Rocephin) 2 gm Q24H IM ; Start 04/23/19 at 10:00; Stop 04/23/19 at 10:20; Status DC Ceftriaxone Sodium (Rocephin) 2 gm Q24H IV ; Start 04/24/19 at 10:00; Stop 04/24/19 at 10:00; Status DC Chlorhexidine Gluconate (Peridex Oral Rinse) SWAB/BRUSH ORAL CAVITY BID MT Last administered on 04/25/19at 08:19; Start 04/23/19 at 09:00; Stop 04/25/19 at 08:54; Status DC Enoxaparin Sodium (Lovenox) 40 mg DAILY SC Last administered on 04/25/19at 08:19; Start 04/23/19 at 09:00 Home Med (Med Rec Complete!) ASDIRECTED XX ; Start 04/23/19 at 06:15; Stop 04/23/19 at 06:27; Status DC Midazolam HCl (Versed) 2 mg Q15MP PRN IV AGITATION Last administered on 04/24/19at 16:29; Start 04/23/19 at 13:00; Stop 04/25/19 at 09:49; Status DC Midazolam HCl (Versed) 2 mg STAT STAT IV Last administered on 04/23/19at 04:34; Start 04/23/19 at 04:34; Stop 04/23/19 at 06:22; Status DC Midazolam HCl (Versed) 2 mg STAT STAT IV Last administered on 04/23/19at 04:38; Start 04/23/19 at 04:38; Stop 04/23/19 at 06:22; Status DC Midazolam HCl (Versed) 4 mg STAT STAT IV Last administered on 04/23/19at 18:13; Start 04/23/19 at 18:39; Stop 04/23/19 at 18:45; Status DC Midazolam HCl (Versed) 5 mg STAT STAT IV Last administered on 04/23/19at 08:47; Start 04/23/19 at 08:30; Stop 04/23/19 at 08:31; Status DC Midazolam HCl 100 mg/Dextrose 100 ml @ 2 mls/hr Q24H IV ; Start 04/23/19 at 06:00; Stop 04/23/19 at 11:46; Status DC Midazolam HCl 100 mg/Dextrose 100 ml @ 2 mls/hr Q24H IV Last administered on 04/24/19at 11:57; Start 04/23/19 at 09:00; Stop 04/25/19 at 09:28; Status DC Midazolam HCl 100 mg/Dextrose 100 ml @ 6 mls/hr [id number] IV ; Start 04/23/19 at 16:24; Status UNV Morphine Sulfate (Morphine Sulfate Inj) 2 mg Q2HP PRN IV PAIN; Start 04/23/19 at 03:30; Stop 04/25/19 at 09:49; Status DC Pantoprazole Sodium (Protonix) 40 mg DAILY IV Last administered on 04/25/19at 08:19; Start 04/23/19 at 09:00 Potassium Chloride 10 meq/ IV Miscellaneous Supplies 100 ml @ 100 mls/hr Q1H IV Last administered on 04/25/19at 10:28; Start 04/25/19 at 09:00; Stop 04/25/19 at 10:59; Status DC Potassium Chloride 20 meq/ Dextrose/Sodium Chloride 1,010 ml @ 75 mls/hr [id number] IV ; Start 04/24/19 at 09:15; Stop 04/24/19 at 09:30; Status DC Potassium Chloride/Dextrose/ Sod Cl 1,000 ml @ 75 mls/hr [id number] IV Last administered on 04/25/19at 08:19; Start 04/24/19 at 10:00; Stop 04/25/19 at 14:17; Status DC Propofol 1000 mg/ IV Miscellaneous Supplies 100 ml @ 4.48 mls/hr [id number] IV ; Start 04/23/19 at 13:00; Stop 04/23/19 at 13:08; Status DC Propofol 1000 mg/ IV Miscellaneous Supplies 100 ml @ 4.48 mls/hr [id number] IV Last administered on 04/25/19at 04:35; Start 04/23/19 at 20:45; Stop 04/25/19 at 08:54; Status DC Vancomycin HCl 1000 mg/IV Miscellaneous Supplies 1 each/ Dextrose 270 ml @ 270 mls/hr Q8H IV Last administered on 04/24/19at 09:54; Start 04/23/19 at 09:00; Stop 04/24/19 at 10:49; Status DC Allergies Coded Allergies: bee venom protein (honey bee) (Verified Allergy, Unknown, 04/23/19) ANGELIC DUVAL MD Apr 25, 2019 19:15
[2019-04-26 06:00] VITALS: BP 137/88
[2019-04-26 06:22] LABS: HEMATOCRIT 42.8 % (42.0-52.0); HEMOGLOBIN 14.9 g/dl (13.5-17.5); MEAN CORPUSCULAR HEMOGLOBIN 32.3 pg (27.0-33.0); MEAN CORPUSCULAR HGB CONC 34.8 g/dl (32.0-36.5); MEAN CORPUSCULAR VOLUME 92.8 fl (80.0-96.0); PLATELET COUNT, AUTOMATED 218 10^3/uL (150-450); RED BLOOD COUNT 4.61 10^6/uL (4.30-6.10); WHITE BLOOD COUNT 7.3 10^3/uL (4.0-10.0)
[2019-04-26 06:53] LABS: ALBUMIN 3.2 GM/DL (3.2-5.2); ALT/SGPT 19 U/L (12-78); BILIRUBIN,TOTAL 0.4 MG/DL (0.2-1.0); BLOOD UREA NITROGEN 5 MG/DL (7-18); CALCIUM LEVEL 8.8 MG/DL (8.5-10.1); CARBON DIOXIDE LEVEL 27 MEQ/L (21-32); CHLORIDE LEVEL 108 MEQ/L (98-107); CREATININE FOR GFR 0.86 MG/DL (0.70-1.30); GLOMERULAR FILTRATION RATE > 60.0 (>60); GLUCOSE, FASTING 101 MG/DL (70-100); MAGNESIUM LEVEL 1.9 MG/DL (1.8-2.4); PHOSPHORUS LEVEL 4.3 MG/DL (2.5-4.9); POTASSIUM SERUM 3.2 MEQ/L (3.5-5.1); SODIUM LEVEL 142 MEQ/L (136-145); TOTAL PROTEIN 6.7 GM/DL (6.4-8.2)
[2019-04-26] MEDS: IPRATROPIUM 0.5MG/ALBUTEROL 2.5MG INH SOL UD 3ML (DUONEB)(J7620) NEB SCH ×2 (08:00→12:00)
[2019-04-26] MEDS: PANTOPRAZOLE 40MG INJ (PROTONIX) (C9113) IV SCH (09:29)
[2019-04-26] MEDS: ENOXAPARIN 40 MG/0.4 ML SYRINGE (J1650) SC SCH (09:29)
[2019-04-26] MEDS ORDERED: POTASSIUM CHLORIDE 10 MEQ SR TABLET PO ONE (10:45)
--- NOTE | 2019-04-26 11:19 | DS.PDOC ---
Discharge Summary General Date of Admission Apr 23, 2019 at 02:50 Date of Discharge 04/26/2019 Discharge Summary PROCEDURES PERFORMED DURING STAY: None. ADMITTING DIAGNOSES: 1. Altered mental status. DISCHARGE DIAGNOSES: 1. Altered mental status, acute encephalopathy, possible drug overdose COMPLICATIONS/CHIEF COMPLAINT: AMS. HISTORY OF PRESENT ILLNESS: Mr. Patterson is a 34-year-old male who does not routinely see physicians who had been transferred from [facility] ([facility]) after presenting there with severe agitation and altered mental status. Apparently the only history I am able to obtain is this through his reported fiance Zackary Thomas. She states over the past couple of days they have been arguing and therefore she did not have much interaction with him. They do live in the same household. She states that this evening he approached her and kept repeating himself and not making sense with conversation. He was ", "twitchy and clammy." She felt that something was not right and therefore called the ambulance and reports at times he was not responding to her questions. He had a few episodes of vomiting. She states he vomited mostly bile. She states he was very agitated walking around and rocking back and forth and would not sit down even when the ambulance came. On arrival to the emergency room he was agitated. They gave him benzodiazepine therapy to obtain a noncontrast head CT which was reportedly completely normal and of good quality. The significant other reports no recent trauma. No recent sick contacts. She states he takes Tylenol on a regular basis for headaches. The only medical history is he had teeth pulled two weeks ago and had been taking antibiotics since that time. She believes he has been taking clindamycin 150 mg every 8 hours. He denies any diarrhea. The patient has gabapentin and baclofen for chronic back pain available to him. He is not known to use any intravenous (IV) drugs but does smoke pot on a daily basis but she states he has not smoked pot today. He has no history of other illicit drug use, no cocaine history. . HOSPITAL COURSE: Altered mental status secondary to acute encephalopathy secondary to possible baclofen overdose Patient had been explained it today NG tube has been removed He is tolerating clear liquid diet Jeff and her family at the bedside Discussed with brian Mahoney the patient's last night Patient was seen by Dr. trejo and Dr. Wood, patient is clear for discharge. Does not need inpatient psych care Continue all home medications Follow with PCP in one week. DISCHARGE MEDICATIONS: Please see below. ALLERGIES: Please see below. PHYSICAL EXAMINATION ON DISCHARGE: VITAL SIGNS: Please see below. GENERAL: Within normal limits HEENT: PERRLA NECK: Supple CARDIOVASCULAR EXAMINATION: S1, S2, regular RESPIRATORY EXAMINATION: Clear to A&P ABDOMINAL EXAMINATION: Benign EXTREMITIES: No clubbing, cyanosis, edema SKIN: Within normal limits NEUROLOGICAL EXAMINATION: Focal motor sensory deficit PSYCHIATRIC EXAMINATION: Normal LABORATORY DATA: Please see below. IMAGING: Chest x-ray within normal limits PROGNOSIS: Good ACTIVITY: As tolerated. DIET: As tolerated DISCHARGE PLAN: Discharge home Disposition: Home DISCHARGE INSTRUCTIONS: 1. As above. ITEMS TO FOLLOWUP ON ON OUTPATIENT: 1. Follow-up with PCP in one week. DISCHARGE CONDITION: Stable. TIME SPENT ON DISCHARGE: 35 minutes. Vital Signs/I&Os Vital Signs Date Time Temp Pulse Resp B/P (MAP) Pulse Ox O2 Delivery O2 Flow Rate FiO2 04/26/19 06:00 98.0 78 20 137/88 (104) 94 04/25/19 08:30 21 04/25/19 07:44 Ventilator 04/23/19 22:00 I&O- Last 24 Hours up to 6 AM 04/26/19 06:00 Intake Total 2629.0 ml Output Total 2500 ml Balance 129.0 ml Laboratory Data Labs 24H Laboratory Tests 2 04/26/19 05:32: Nucleated Red Blood Cells % (auto) 0.0, Anion Gap 7L, Glomerular Filtration Rate > 60.0, Blood Urea Nitrogen 5#L, Creatinine 0.86, Sodium Level 142, Potassium Level 3.2L, Chloride Level 108H, Carbon Dioxide Level 27, Calcium Level 8.8, Phosphorus Level 4.3, Aspartate Amino Transf (AST/SGOT) 18, Alanine Aminotransferase (ALT/SGPT) 19, Alkaline Phosphatase 84, Total Bilirubin 0.4, Total Protein 6.7, Albumin 3.2, Magnesium Level 1.9, Albumin/Globulin Ratio 0.91L CBC/BMP Laboratory Tests 04/26/19 05:32 Red Blood Count 4.61, Mean Corpuscular Volume 92.8, Mean Corpuscular Hemoglobin 32.3, Mean Corpuscular Hemoglobin Concent 34.8, Red Cell Distribution Width 13.1, Calcium Level 8.8, Phosphorus Level 4.3, Aspartate Amino Transf (AST/SGOT) 18, Alanine Aminotransferase (ALT/SGPT) 19, Alkaline Phosphatase 84, Total Bilirubin 0.4, Total Protein 6.7, Albumin 3.2 Microbiology Microbiology 04/23/19 Blood Culture - Preliminary, Resulted No Growth after 72 hours. All specime... 04/23/19 Blood Culture - Preliminary, Resulted No Growth after 72 hours. All specime... Discharge Medications Scheduled Baclofen (Baclofen) 10 Mg Tablet, 10 MG PO TID, (Reported) Cetirizine HCl (Cetirizine HCl) 10 Mg Tablet, 10 MG PO DAILY, (Reported) Gabapentin (Gabapentin) 300 Mg Capsule, 300 MG PO TID, (Reported) Scheduled PRN Acetaminophen (Tylenol Extra Strength) 500 Mg Tablet, 1,000 MG PO Q4H PRN for PAIN, (Reported) Albuterol Sulfate (Proair Hfa) 8.5 Gm Hfa.aer.ad, 2 PUFF INH Q4H PRN for SOB/WHEEZING, (Reported) Ibuprofen (Ibuprofen) 600 Mg Tablet, 600 MG PO Q6H PRN for PAIN, (Reported) Allergies Coded Allergies: bee venom protein (honey bee) (Verified Allergy, Unknown, 04/23/19) TRISTAN VINSON MD Apr 26, 2019 11:18
--- NOTE | 2019-04-26 22:47 | ECGEPIP ---
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
--- NOTE | 2019-04-27 | ECGEPIP ---
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 SINUS TACHYCARDIA IS NOW NOTED Electronically Signed on 04-27-2019 0:00:23 EDT by Negro Canela
== END 2019-04-26 13:00 | disposition home or self-care (01) | DRG 812 ==
LOC: M ICU 02:50 → M MSPAV 04-25 21:14
PROVIDERS: ADMIT Internal Medicine Pulmonary Disease; ATTEND Internal Medicine
PROC: 5A1945Z Respiratory Ventilation, 24-96 Consecutive Hours (ICD-10-PCS; principal; 2019-04-23)
PROC: 009U3ZZ Drainage of Spinal Canal, Percutaneous Approach (ICD-10-PCS; 2019-04-23)
DX: T42.8X1A Poisoning by antiparkinsonism drugs and other central muscle-tone depressants, accidental (unintentional), initial encounter (principal); J96.90 Respiratory failure, unspecified, unspecified whether with hypoxia or hypercapnia; G92 Toxic encephalopathy; E87.5 Hyperkalemia; E86.0 Dehydration; F12.90 Cannabis use, unspecified, uncomplicated; Z91.038 Other insect allergy status; F17.210 Nicotine dependence, cigarettes, uncomplicated; M54.5 Low back pain; D72.829 Elevated white blood cell count, unspecified; F32.9 Major depressive disorder, single episode, unspecified

== ENCOUNTER → 2019-05-10 | Outpatient (REF) | payer OTHER ==
[~2019-05-10] MED LIST: ACET-897 PO; ALL10TAB28 PO; BACL10TA2 PO; GABA-843 PO; IBUP1TAB6 PO; PATIENT COMMENT; PROAAER10 INH
[2019-05-10 19:32] LABS: BLOOD UREA NITROGEN 13 MG/DL (7-18); CALCIUM LEVEL 9.2 MG/DL (8.5-10.1); CARBON DIOXIDE LEVEL 28 MEQ/L (21-32); CHLORIDE LEVEL 106 MEQ/L (98-107); CREATININE FOR GFR 1.19 MG/DL (0.70-1.30); GLOMERULAR FILTRATION RATE > 60.0 (>60); GLUCOSE, FASTING 79 MG/DL (70-100); SODIUM LEVEL 141 MEQ/L (136-145)
== END ==
LOC: M SFHCADAM 16:02
PROVIDERS: ATTEND Physician Assistant Medical
DX: E87.6 Hypokalemia (principal)

== ENCOUNTER → 2019-07-17 | Outpatient (CLI) | payer OTHER ==
[~2019-07-17] MED LIST changes: -ALL10TAB28 PO; +ALL10TAB29 PO
--- NOTE | 2019-07-18 03:29 | REP ---
Clinical: Lumbago . Technique: AP, lateral, bilateral oblique, and coned-down views. Findings: Alignment and lordosis is maintained. The vertebral bodies including transverse process and spinous processes are intact and normal. There is no evidence for acute fracture / compression injury or subluxation. No evidence for spondylolysis or spondylolisthesis. No significant degenerative change is noted. Impression: Normal lumbosacral spine radiograph series. Electronically Signed by James De Los Santos MD 07/18/2019 03:20 A
== END ==
LOC: M ADAMS 15:58
PROVIDERS: ATTEND Physician Assistant Medical
DX: M54.42 Lumbago with sciatica, left side (principal)

== ENCOUNTER → 2019-07-17 | Outpatient (REF) | payer OTHER | LOC: M SFHCADAM 15:32 | PROVIDERS: ATTEND Physician Assistant Medical | DX: E55.9 Vitamin D deficiency, unspecified (principal) ==

== ENCOUNTER → 2024-12-27 | Outpatient (REF) | payer OTHER ==
[~2024-12-27] MED LIST changes: -ALL10TAB29 PO; +CETI-24 PO; +GABA-1172 PO; -GABA-843 PO
== END ==
LOC: M LAB REF 13:21
PROVIDERS: ATTEND Nurse Practitioner Adult Health
DX: R05.9 Cough, unspecified (principal)